=== PATIENT | female | born 1990 | race Caucasian/White ===

== ENCOUNTER 2017-12-15 00:15 | Emergency (ER) | payer OTHER | END 2017-12-15 01:44 | disposition home or self-care (01) | LOC: FTE 00:15 | DX: S91.101A Unspecified open wound of right great toe without damage to nail, initial encounter (principal); W50.0XXA Accidental hit or strike by another person, initial encounter; Y92.9 Unspecified place or not applicable | CPT/HCPCS: 73660; 99283-25 ==